=== PATIENT | male | born 1985 | race American Indian/Alaskan Native ===

== ENCOUNTER 2016-11-06 02:35 | Emergency (ER) | payer OTHER ==
[2016-11-06 02:48] VITALS: BP 159/110
--- NOTE | 2016-11-06 03:36 | XRay Report ---
FINAL REPORT EXAM: XR CHEST ROUTINE 2V HISTORY: cough COMPARISON: None available. FINDINGS:: Frontal and lateral views of the chest obtained. Cardiac silhouette is within normal limits. No focal consolidation or effusion. No pneumothorax. Visualized bony thorax is grossly intact. IMPRESSION:: No focal consolidation.
[2016-11-06] MEDS ORDERED: PHENERGAN/CODEINE 6.25-10 MG/5ML PO ONE ×2 (06:24→08:15)
[2016-11-06] MEDS ORDERED: BENADRYL PO ONE (06:25)
[2016-11-06] MEDS ORDERED: TORADOL IM ONE (06:25)
[2016-11-06] MEDS ORDERED: TORADOL ONE (06:31)
--- NOTE | 2016-11-06 07:02 | Emergency Department Report ---
Pediatric URI - HPI Chief Complaint: Upper Respiratory Infection Stated Complaint: COUGH Duration: 5 Days Severity: Mild Symptoms: Yes Cough, Yes Able to Tolerate Fluids, Yes Good Urine Output, No Rhinorrhea, No Sore Throat, No Ear Pain, No Shortness of Breath, No Sick Contacts, No Listless Behavior Other History: 30 year old male presents to ED with productive cough x5-6 days. patient states he had fever last Sunday (5-6 days ago) but none since then. patient is stable, neurologically intact and in no acute distress. patient is afebrile. ED Review of Systems ROS: Stated complaint: COUGH Other details as noted in HPI Constitutional: denies: chills, fever Eyes: denies: eye pain, eye discharge, vision change ENT: denies: ear pain, throat pain Respiratory: cough. denies: shortness of breath, wheezing Cardiovascular: denies: chest pain, palpitations Endocrine: no symptoms reported Gastrointestinal: denies: abdominal pain, nausea, diarrhea Genitourinary: denies: urgency, dysuria Musculoskeletal: denies: back pain, joint swelling, arthralgia Skin: denies: rash, lesions Neurological: denies: headache, weakness, paresthesias Psychiatric: denies: anxiety, depression Hematological/Lymphatic: denies: easy bleeding, easy bruising ED Peds URI Exam - Exam General: Vital signs noted. No distress. Alert and acting appropriately. HEENT: Yes Moist Mucous Membranes, No Pharyngeal Erythema, No Pharyngeal Exudates, No Rhinorrhea, No Conjuctival Injection, No Frontal Tenderness, No Maxillary Tenderness Ear: Neither TM Bulge, Neither TM Erythema, Neither EAC Pain, Neither EAC Discharge, Neither Cerumen Impaction Neck: Yes Supple, No Adenopathy Lungs: Yes Good Air Exchange, No Wheezes, No Ronchi, No Stridor, No Cough, No Labored Respirations, No Retractions, No Use of Accessory Muscles, No Other Abnormal Lung Sounds Heart: Yes Regular, No Murmur Abdomen: Yes Normal Bowel Sounds, No Tenderness, No Peritoneal Signs Skin: No Rash, No Eczema Neurologic: Alert and oriented, no deficits. Musculoskeletal: Unremarkable. ED Course Vital Signs 11/06/16 02:46 Temperature 98.9 F Pulse Rate 67 Respiratory 17 Rate Blood Pressure 159/110 O2 Sat by Pulse 100 Oximetry ED Medical Decision Making - Lab Data blood cultures pending - Radiology Data Radiology results: report reviewed XR chest No focal consolidation - Medical Decision Making 30 year old male presents to ED with productive cough x5-6 days. patient is afebrile today and no acute findings on chest xray. patient is stable, neurologically intact and in no acute distress. patient will be given RX for cough syrup, tessalon pearls and NSAIDs. Critical care attestation.: If time is entered above; I have spent that time in minutes in the direct care of this critically ill patient, excluding procedure time. ED Disposition Clinical Impression: Bronchitis, acute Qualifiers: Bronchitis organism: unspecified organism Qualified Code(s): J20.9 - Acute bronchitis, unspecified Disposition: - TO HOME OR SELFCARE Is pt being admited?: No Does the pt Need Aspirin: No Condition: Stable Instructions: Acute Bronchitis (ED) Additional Instructions: blood cultures pending. results available within 3-4 days. Prescriptions: Benzonatate [Tessalon Perles] 100 mg PO Q8HR #21 capsule guaiFENesin DM [Robitussin Dm] 5 ml PO BID #118 ml Meloxicam [Mobic] 7.5 mg PO QDAY #7 tablet Referrals: PRIMARY CARE, [Primary Care Provider] - 3-5 Days
== END 2016-11-06 08:38 | disposition home or self-care (01) ==
LOC: ED 02:35
DX: J20.9 Acute bronchitis, unspecified (principal)
CPT/HCPCS: 36415; 71020; 87040; 96372; 99283; J1885